=== PATIENT | male | born 1940 | race Caucasian/White ===

== ENCOUNTER → 2017-03-15 | Outpatient (CLI) | payer MEDICARE, MEDICAID ==
--- NOTE | ~2017-03-15 | CON ---
[place], [place] REPORT OF CONSULTATION NAME: KAROLINA SALDAÑA UNIT #: [id number] ROOM: DOCTOR: SIMONA IrahetaJACQUELINE BIRTHDATE: [birth year] DOS: 03/15/2017 New patient consultation for possible hyperbaric oxygen therapy. CHIEF COMPLAINT: Nonhealing wound. HISTORY OF PRESENT ILLNESS: This is a 76-year-old male with a history of rectal cancer, who was treated with preop chemotherapy and radiation treatment followup. He had APR surgery with colostomy on 09/11/2016. He developed a wound infection postoperatively that was I and D and now has a continued chronic open wound in the gluteal cleft that is nonhealing. He was referred to our [facility] for hyperbaric oxygen therapy for soft tissue radionecrosis by Plastic Surgery, Dr. Conner. He did receive radiation treatment, looks like 03/31/2017. The site was a pelvic region. The total dose was 5040 cGy. The wound is located on the gluteal cleft with chronic drainage, healing failure, signs of infection according to the medical notes. He was referred to Dr. Conner by Dr. Chon Parks at [facility] for further evaluation and then has been referred to us for possible hyperbaric oxygen therapy. The conventional therapy that has been attempted looks like I and D, treatment of infection, evaluation by Infectious Disease, management of MRSA infection. It looks like he had a wound VAC and silver dressing with no relief and continues to have an open wound draining copious amounts of fluid according to the notes. He is also currently on Dakin solution twice a day with decontamination of MRSA with chlorhexidine, showers, and mupirocin eradication was recommended. The wound management going is not going to be done by our clinic, but it is going to be continued by his wound care physician. He has never been tried for hyperbaric oxygen. He did complete 5-Fluorouracil infusions on 04/23/2016, 04/16/2016, 04/09/2016, and 04/02/2016. PAST MEDICAL HISTORY: Includes the following: History of COPD, unspecified history of hypertension. He has had a history of falls, history of gout in the right hand. He has a history of MRSA, history of chronic ulceration of the left leg. He has had a total knee arthroplasty, general osteoarthritis, history of atrial fibrillation, chronic nonhealing wound, anemia, colostomy, history of edema, epistaxis, GERD, hyperlipidemia, long-term use of anti-thrombotics or anti-platelets, history of rectal cancer as stated above, history of nausea, history of coronary artery disease, status post implant and graft. He is status post right total knee. He has had a history of shortness of breath, history of hearing loss in the left ear, and history of peripheral venous insufficiency. There is a history of congestive heart failure also on the medical records. History of dialysis, it sounds like it was short term. He is not on dialysis at this point. FAMILY HISTORY: Noncontributory. SOCIAL HISTORY: He is a former smoker. He quit 25 years ago. He is a former smoker. He quit 25 years ago. He never drinks alcohol. He currently lives in a shelter. There is no drug use. MEDICATIONS: As follows: He looks like his active medicines are acetaminophen [place], [place] REPORT OF CONSULTATION NAME: KAROILNA SALDAÑA UNIT #: [id number] ROOM: DOCTOR: SIMONA Iraheta,DYER BIRTHDATE: [birth year] 325 mg by mouth 3 times a day for pain, albuterol nebulizers every 6 hours as needed as well as nebulizers 3 times a day for shortness of breath, aloe skin protectant to his feet every day, aspirin 81 daily, Bactrim double strength 1 tablet p.o. b.i.d. that was started on 03/10/2017 for 7 days. He is on bisacodyl tablets by mouth once a day for constipation, calcium carbonate 500/200 mg units 2 tablets once a day. He is on Dakin's solution to his wound. He is on Ferrex 150 mg 1 tablet daily, folic acid 1 mg p.o. daily, Lasix 40 mg p.o. 2 times a day for edema. It is not clear to me if this is p.r.n. and/or regularly scheduled. He is on metoprolol 25 mg half tablet 2 times a day for high blood pressure, Nexium 40 mg p.o. 2 times a day for GERD. He also has a p.r.n. sublingual nitroglycerin; however, he says he has not ever used it. Plavix 75 mg daily. He is on nasal saline spray, Symbicort 2 puffs 2 times a day, Zofran p.r.n., and Zyloprim is 100 mg p.o. daily. REVIEW OF SYSTEMS: The patient denies any fevers or chills, abdominal pains, or diarrhea. He says his appetite is good. He did admit to losing some weight when he first had a surgery. He says his breathing is good. He does not get short of breath, but does take his inhalers. He denies any chest pains. He says he has not had to ever use nitroglycerin that he is aware of. He does recall that his legs swell at times, and he does recall being on dialysis, but he is not sure how long it was or how and why that was. He is currently not on dialysis. He reports no history of seizures, and he reports no history of acute congestive heart failure that he is aware of. OBJECTIVE: VITAL SIGNS: Stable. Temperature is 98.5, pulse is 64, respirations 18, blood pressure is 112/72. GENERAL: This is an elderly male who appears to be in no acute distress, pleasant and cooperative, appears to be chronically ill. HEENT: Extraocular movements are intact. Pupils are reactive. Oropharynx is clear. LUNGS: Clear to auscultation. CARDIOVASCULAR: S1, S2, regular rate and rhythm. ABDOMEN: Soft. It is not tender. He has a colostomy in place. EXTREMITIES: He has 1+ pitting edema bilaterally with evidence of venous stasis disease. There is no calf tenderness. NEUROLOGIC: He appears to be alert and oriented and nonfocal. ASSESSMENT AND PLAN: Chronic nonhealing wound, felt to be secondary to radionecrosis. The patient is going to have his wound care done by his regular wound care physician, and he has been referred for hyperbaric oxygen. I think he would be a good candidate for hyperbaric oxygen. Unfortunately, the ride is quite a bit for him. It is 2-hour ride to get here, but he states he will come every day once he starts. I did explain risks with hyperbarics including congestive heart failure and pneumothorax, barotrauma to the ears and seizures. The patient is aware and is still wanting to proceed. With his history of renal failure and it did state in one of the charts that he has a history of heart failure, he is on diuretics. I would definitely like to get an echocardiogram for him to see what his ejection fraction is first, see if we can obtain some of the records from his discharge summary from when he last was admitted to the [place], [place] REPORT OF CONSULTATION NAME: KAROLINA SALDAÑA UNIT #: [id number] ROOM: DOCTOR: JACQUELINE JARVIS M.D. BIRTHDATE: [birth year] hospital, and he will need a chest x-ray and EKG as well. Once we have those reports, we will see if we can clear him for hyperbarics. JACQUELINE JARVIS MD CM:CONSTR:REPORT OF CONSULTATION 1636 03/15/17 1822 interface
--- NOTE | ~2017-03-15 | WRIGHTHP ---
[place], [place] PATIENT HISTORY AND PHYSICAL EXAM NAME: KAROLINA SALDAÑA UNIT #: [id number] ROOM: DOCTOR: JACQUELINE JARVIS M.D. BIRTHDATE: [birth year] DOS: 03/15/2017 ADDENDUM I also examined his tympanic membranes and he did have some cerumen impaction, the left being worse than the right, the left where he has hearing loss. It was pretty dry and thick. So, I have recommended to him to use Debrox ear wax and to use it 5-10 drops in each ear twice a day for 5 days and then to flush it out per the instructions listed on the kit that is available, so hopefully we can better visualize his tympanic membranes when he comes back. JACQUELINE JARVIS MD CM:HISPHYS:PATIENT HISTORY AND PHYSICAL EXAMINATION 1649 JACQUELINE JARVIS M.D. 03/16/17 1138 MAGGY [email or web address].TM
--- NOTE | ~2017-03-15 | CON ---
[place], [place] REPORT OF CONSULTATION NAME: KAROLINA SALDAÑA UNIT #: [id number] ROOM: DOCTOR: JACQUELINE JARVIS M.D. BIRTHDATE: [birth year] DOS: 03/15/2017 ADDENDUM I also examined his tympanic membranes and he did have some cerumen impaction, the left being worse than the right, the left where he has hearing loss. It was pretty dry and thick. So, I have recommended to him to use Debrox ear wax and to use it 5-10 drops in each ear twice a day for 5 days and then to flush it out per the instructions listed on the kit that is available, so hopefully we can better visualize his tympanic membranes when he comes back. JACQUELINE JARVIS MD CM:CONSTR:REPORT OF CONSULTATION 1637 03/16/17 1136 interface
== END ==
LOC: WOUNDCARE 12:30
DX: T66.XXXA Radiation sickness, unspecified, initial encounter (principal); J44.9 Chronic obstructive pulmonary disease, unspecified; I10 Essential (primary) hypertension; I48.91 Unspecified atrial fibrillation; M15.9 Polyosteoarthritis, unspecified; K21.9 Gastro-esophageal reflux disease without esophagitis; E78.5 Hyperlipidemia, unspecified; I25.10 Atherosclerotic heart disease of native coronary artery without angina pectoris; I50.9 Heart failure, unspecified; I87.2 Venous insufficiency (chronic) (peripheral); Z87.891 Personal history of nicotine dependence; Z85.048 Personal history of other malignant neoplasm of rectum, rectosigmoid junction, and anus; Z86.14 Personal history of Methicillin resistant Staphylococcus aureus infection; Y84.2 Radiological procedure and radiotherapy as the cause of abnormal reaction of the patient, or of later complication, without mention of misadventure at the time of the procedure

== ENCOUNTER → 2017-04-05 | Outpatient (CLI) | payer MEDICARE, MEDICAID | LOC: WOUNDCARE 02:11 | DX: L59.8 Other specified disorders of the skin and subcutaneous tissue related to radiation (principal); L98.412 Non-pressure chronic ulcer of buttock with fat layer exposed; Y84.2 Radiological procedure and radiotherapy as the cause of abnormal reaction of the patient, or of later complication, without mention of misadventure at the time of the procedure ==

== ENCOUNTER → 2017-04-06 | Outpatient (CLI) | payer MEDICARE, MEDICAID | LOC: WOUNDCARE 03:07 | DX: L59.8 Other specified disorders of the skin and subcutaneous tissue related to radiation (principal); L98.412 Non-pressure chronic ulcer of buttock with fat layer exposed; Y84.2 Radiological procedure and radiotherapy as the cause of abnormal reaction of the patient, or of later complication, without mention of misadventure at the time of the procedure ==

== ENCOUNTER → 2017-04-07 | Outpatient (CLI) | payer MEDICARE, MEDICAID | LOC: WOUNDCARE 02:47 | DX: L59.8 Other specified disorders of the skin and subcutaneous tissue related to radiation (principal); L97.412 Non-pressure chronic ulcer of right heel and midfoot with fat layer exposed; Y84.2 Radiological procedure and radiotherapy as the cause of abnormal reaction of the patient, or of later complication, without mention of misadventure at the time of the procedure ==

== ENCOUNTER → 2017-04-08 | Outpatient (CLI) | payer MEDICARE, MEDICAID | LOC: WOUNDCARE 02:29 | DX: L59.8 Other specified disorders of the skin and subcutaneous tissue related to radiation (principal); L98.412 Non-pressure chronic ulcer of buttock with fat layer exposed; Y84.2 Radiological procedure and radiotherapy as the cause of abnormal reaction of the patient, or of later complication, without mention of misadventure at the time of the procedure ==

== ENCOUNTER → 2017-04-12 | Outpatient (CLI) | payer MEDICARE, MEDICAID | LOC: WOUNDCARE 03:36 | DX: L59.8 Other specified disorders of the skin and subcutaneous tissue related to radiation (principal); L98.412 Non-pressure chronic ulcer of buttock with fat layer exposed; Y84.2 Radiological procedure and radiotherapy as the cause of abnormal reaction of the patient, or of later complication, without mention of misadventure at the time of the procedure ==

== ENCOUNTER → 2017-04-13 | Outpatient (CLI) | payer MEDICARE, MEDICAID | LOC: WOUNDCARE 08:56 | DX: L59.8 Other specified disorders of the skin and subcutaneous tissue related to radiation (principal); L98.412 Non-pressure chronic ulcer of buttock with fat layer exposed; Y84.2 Radiological procedure and radiotherapy as the cause of abnormal reaction of the patient, or of later complication, without mention of misadventure at the time of the procedure ==

== ENCOUNTER → 2017-04-14 | Outpatient (CLI) | payer MEDICARE, MEDICAID | LOC: WOUNDCARE 03:10 | DX: L59.8 Other specified disorders of the skin and subcutaneous tissue related to radiation (principal); L98.412 Non-pressure chronic ulcer of buttock with fat layer exposed; Y84.2 Radiological procedure and radiotherapy as the cause of abnormal reaction of the patient, or of later complication, without mention of misadventure at the time of the procedure ==

== ENCOUNTER → 2017-04-21 | Outpatient (CLI) | payer MEDICARE, MEDICAID ==
--- NOTE | ~2017-04-21 | PR ---
[place], [place] PROGRESS NOTE NAME: KAROLINA SALDAÑA UNIT #: [id number] ROOM: DOCTOR: GOSIA GONCALVES DO BIRTHDATE: [birth year] DOS: 04/21/2017 HYPERBARIC PROCEDURE NOTE SUPERVISING PHYSICIAN: Dr. Goncalves. SUBJECTIVE: The patient is scheduled for HBO treatment. The protocol is used for 9-minute treatment at 2.5 WILMAN on 100% oxygen with both 15-minute compression and decompression time interval with two 5-minute air breaks. Total treatment time 130 minutes. This is treatment #8. OBJECTIVE: VITAL SIGNS: Both pre and post-vital signs were taken, reviewed and appeared stable. Exam completed pre and post-treatment. EARS: Canals are clear. No evidence of blockage, edema, ear infection or barotraumas. NOSE: No rhinorrhea or bleeding. HEART: Regular. LUNGS: Clear to auscultation bilaterally. ASSESSMENT: Late effect of radiation. PLAN: The patient will continue current HBO treatment scheduled and protocol used. GOSIA GONCALVES DO CM:KASSY 1413 37 GOSIA GONCALVES DO 04/21/171937 interface
== END ==
LOC: WOUNDCARE 02:38
DX: L98.412 Non-pressure chronic ulcer of buttock with fat layer exposed (principal); L59.8 Other specified disorders of the skin and subcutaneous tissue related to radiation; Y84.2 Radiological procedure and radiotherapy as the cause of abnormal reaction of the patient, or of later complication, without mention of misadventure at the time of the procedure

== ENCOUNTER → 2017-04-22 | Outpatient (CLI) | payer MEDICARE, MEDICAID ==
--- NOTE | ~2017-04-22 | PR ---
[place], [place] PROGRESS NOTE NAME: KAROLINA SALDAÑA UNIT #: [id number] ROOM: DOCTOR: KIRK LAMBERT DO BIRTHDATE: [birth year] DOS: 04/22/2017 HYPERBARIC NOTE SUBJECTIVE: The patient is supervised in a hyperbaric chamber on 04/22/2017 for night hyperbaric treatment for late effects of radiation. Pre-therapy, tympanic membranes were negative with TEED score grade 0 bilaterally. Pre-therapy, blood pressure 110/60, pulse 60, respirations 16 and temperature 97.6. Post-therapy, blood pressure 110/60, pulse 60, respirations 16 and temperature 97.8. The patient is supervised in chamber 122 minutes, 90 minutes at depth at 2 atmospheres of pressure with no air breaks. He tolerated the procedure without difficulty and will return for next treatment. KIRK LAMBERT DO CM:PNTRANS 1830 KIRK LAMBERT DO 04/23/1736 interface
== END | disposition home or self-care (01) ==
LOC: WOUNDCARE 00:15
DX: L59.8 Other specified disorders of the skin and subcutaneous tissue related to radiation (principal); L98.412 Non-pressure chronic ulcer of buttock with fat layer exposed; Y84.2 Radiological procedure and radiotherapy as the cause of abnormal reaction of the patient, or of later complication, without mention of misadventure at the time of the procedure

== ENCOUNTER → 2017-04-23 | Outpatient (CLI) | payer MEDICARE, MEDICAID ==
--- NOTE | ~2017-04-23 | PR ---
[place], [place] PROGRESS NOTE NAME: KAROLINA SALDAÑA UNIT #: [id number] ROOM: DOCTOR: KIRK LAMBERT DO BIRTHDATE: [birth year] DOS: 04/23/2017 HYPERBARIC NOTE The patient was supervised in the hyperbaric chamber on 04/23/2017 for the 10th hyperbaric treatment for late effect of radiation. Pre-therapy tympanic membranes were negative. Grade 0 TEED score bilaterally. Blood pressure 110/58, pulse 62, respirations 16, temperature 97.8. Post-therapy blood pressure 110/60, pulse 68, respirations 16, temperature 97.8. The patient is supervised in the chamber 116 minutes, 90 minutes at depth at 2 atmospheres of pressure with no air breaks. He tolerated the procedure without difficulty and will return for next treatment. KIRK LAMBERT DO CM:PNTRANS 1733 KIRK LAMBERT DO 04/23/17 2254 interface
== END ==
LOC: WOUNDCARE 03:41
DX: L98.412 Non-pressure chronic ulcer of buttock with fat layer exposed (principal); L59.8 Other specified disorders of the skin and subcutaneous tissue related to radiation; Y84.2 Radiological procedure and radiotherapy as the cause of abnormal reaction of the patient, or of later complication, without mention of misadventure at the time of the procedure

== ENCOUNTER → 2017-04-26 | Outpatient (CLI) | payer MEDICARE, MEDICAID ==
--- NOTE | ~2017-04-26 | PR ---
[place], [place] PROGRESS NOTE NAME: KAROLINA SALDAÑA UNIT #: [id number] ROOM: DOCTOR: JACQUELINE JARVIS M.D. BIRTHDATE: [birth year] DOS: 04/26/2017 This is HBO treatment #11. INDICATION: Late effect of radiation. The protocol is 2.0 WILMAN with 90 minutes of oxygen and no air breaks. Compression began at 8:12 and treatment pressure reached at 8:28. Decompression began at 9:58 and ended at 10:14. Compression rate down and decompression rate up is 1.0 psi per minute. Treatment length was 122 minutes. Vitals pre-HBO are blood pressure 112/60, pulse 62, respirations 16 and temperature 97.8. Post-HBO, blood pressure 110/60, pulse 58, respirations 16 and temperature 97.7. TEED scale is grade 0 bilaterally pre- and post-HBO treatment. The patient tolerated the treatment well without adverse events. I certify that I supervised this HBO treatment in accordance with Medicare guidelines. A trained emergency response team is readily available per hospital policies and procedures. Continue HBO therapy as ordered. JACQUELINE JARVIS MD CM:PNTRANS 1307 1326 JACQUELINE JARVIS M.D. 04/26/17 1327 interface
== END ==
LOC: WOUNDCARE 02:50
DX: L98.412 Non-pressure chronic ulcer of buttock with fat layer exposed (principal); L59.8 Other specified disorders of the skin and subcutaneous tissue related to radiation; Y84.2 Radiological procedure and radiotherapy as the cause of abnormal reaction of the patient, or of later complication, without mention of misadventure at the time of the procedure

== ENCOUNTER → 2017-04-28 | Outpatient (CLI) | payer MEDICARE, MEDICAID ==
--- NOTE | ~2017-04-28 | PR ---
[place], [place] PROGRESS NOTE NAME: KAROLINA SALDAÑA UNIT #: [id number] ROOM: DOCTOR: SIMONA Iraheta,JACQUELINE BIRTHDATE: [birth year] DOS: 04/28/2017 HBO THERAPY NOTE This is treatment #12. HBO indication is late effects of radiation. The protocol is 2.0 WILMAN with 90 minutes of oxygen and no air breaks. Compression begins at 8:07. Treatment pressure reached at 8:23. Treatment length was 122 minutes. Decompression began at 9:53 and ends at 10:08. Compression rate down and decompression rate up was 1.0 psi per minute. Vitals pre-HBO are blood pressure 110/58, pulse 68, respirations 16, temperature 97.8. Post-HBO, the blood pressure is 96/54, pulse of 64, respirations 16, temperature 97.9. TEED scale is grade 0 bilaterally pre and post-HBO treatment. The patient tolerated the treatment well without adverse events. I certify that I supervised this HBO treatment in accordance with Medicare guidelines. A trained emergency response team is readily available per hospital policies and procedures. Continue HBO therapy as ordered. JACQUELINE JARVIS MD CM:PNTRANS 1348 1404 JACQUELINE JARVIS M.D. 04/28/17 1404 interface
== END ==
LOC: WOUNDCARE 07:53
DX: L98.412 Non-pressure chronic ulcer of buttock with fat layer exposed (principal); L59.8 Other specified disorders of the skin and subcutaneous tissue related to radiation; Y84.2 Radiological procedure and radiotherapy as the cause of abnormal reaction of the patient, or of later complication, without mention of misadventure at the time of the procedure

== ENCOUNTER → 2017-04-30 | Outpatient (CLI) | payer MEDICARE, MEDICAID ==
--- NOTE | ~2017-04-30 | PR ---
[place], [place] PROGRESS NOTE NAME: KAROLINA SALDAÑA UNIT #: [id number] ROOM: DOCTOR: GOSIA GONCALVES DO BIRTHDATE: [birth year] DOS: 04/30/2017 HYPERBARIC PROCEDURE NOTE SUPERVISING PHYSICIAN: Dr. Goncalves. SUBJECTIVE: The patient is scheduled for HBO treatment. The protocol used for a 90-minute treatment at 2.0 WILMAN and 100% oxygen with both a 60-minute compression and decompression time interval. Total treatment length 122 minutes, treatment #13. OBJECTIVE: VITAL SIGNS: Both pre and post-treatment vital signs were taken, reviewed and appeared stable. Exam completed pre and post-treatment. EARS: Canals are clear. No evidence of blockage, edema, ear infection or barotraumas. NOSE: No rhinorrhea or bleeding. HEART: Regular. LUNGS: Clear to auscultation bilaterally. ASSESSMENT: Late effect of radiation. PLAN: The patient will continue current HBO treatment scheduled and protocol used. GOSIA GONCALVES DO CM:KASSY 1152 1249 GOSIA GONCALVES DO 05/04/17 1249 interface
== END | disposition home or self-care (01) ==
LOC: WOUNDCARE 08:11
DX: L98.412 Non-pressure chronic ulcer of buttock with fat layer exposed (principal); L59.8 Other specified disorders of the skin and subcutaneous tissue related to radiation; Y84.2 Radiological procedure and radiotherapy as the cause of abnormal reaction of the patient, or of later complication, without mention of misadventure at the time of the procedure

== ENCOUNTER → 2017-05-03 | Outpatient (CLI) | payer MEDICARE, MEDICAID ==
--- NOTE | ~2017-05-03 | PR ---
[place], [place] PROGRESS NOTE NAME: KAROLINA SALDAÑA UNIT #: [id number] ROOM: DOCTOR: SIMONA Iraheta,JACQUELINE BIRTHDATE: [birth year] DOS: 05/03/2017 HBO THERAPY NOTE This is treatment #14. The indication is late effects of radiation. Protocol is 2.0 WILMAN with 90 minutes of oxygen and no air breaks. Compression began at 8:08. Treatment pressure reached at 8:24. Treatment length was 122 minutes. Decompression began at 9:54 and ended at 10:10. Compression rate down and decompression rate up was 1.0 psi per minute. Vital signs pre-HBO are blood pressure 110/62, pulse 68, respirations 16, temperature 97.6. Post-HBO, the blood pressure is 100/60, pulse 64, respirations 16, temperature 97.7. TEED scale is grade 0 bilaterally pre and post-HBO treatment. The patient tolerated the treatment well without adverse events. I certify that I supervised this HBO treatment in accordance with Medicare guidelines. A trained emergency response team is readily available per hospital policies and procedures. Continue HBO therapy as ordered. JACQUELINE JARVIS MD CM:PNTRANS 1547 1622 JACQUELINE JARVIS M.D. 05/03/17 1622 interface
== END | disposition home or self-care (01) ==
LOC: WOUNDCARE 03:12
DX: L98.412 Non-pressure chronic ulcer of buttock with fat layer exposed (principal); L59.8 Other specified disorders of the skin and subcutaneous tissue related to radiation; Y84.2 Radiological procedure and radiotherapy as the cause of abnormal reaction of the patient, or of later complication, without mention of misadventure at the time of the procedure

== ENCOUNTER → 2017-05-04 | Outpatient (CLI) | payer MEDICARE, MEDICAID ==
--- NOTE | ~2017-05-04 | PR ---
[place], [place] PROGRESS NOTE NAME: KAROLINA SALDAÑA UNIT #: [id number] ROOM: DOCTOR: SIMONA Iraheta,JACQUELINE BIRTHDATE: [birth year] DOS: 05/04/2017 HBO THERAPY NOTE INDICATION: Late effects of radiation. Treatment #15. Protocol is 2.0 WILMAN with 90 minutes of oxygen and no air breaks. Compression began at 08:06. Treatment pressure reached at 8:21. Treatment length was 120 minutes. Decompression began at 9:51 and ended at 10:06. Compression rate down and decompression rate up was 1.0 psi per minute. Vitals pre-HBO are blood pressure 98/60, pulse is 68, respirations 18, temperature 97.6. Post-HBO, the blood pressure is 100/60, pulse of 66, respirations 16, temperature 97.7. TEED scale is grade 0 bilaterally pre and post-HBO treatment. The patient tolerated the treatment well without adverse events. I certify that I supervised this HBO treatment in accordance with Medicare guidelines. A trained emergency response team is really available per hospital policies and procedures. Continue HBO therapy as ordered. JACQUELINE JARVIS MD CM:PNTRANS 1441 1503 JACQUELINE JARVIS M.D. 05/04/17 1503 interface
== END | disposition home or self-care (01) ==
LOC: WOUNDCARE 03:19
DX: L98.412 Non-pressure chronic ulcer of buttock with fat layer exposed (principal); L59.8 Other specified disorders of the skin and subcutaneous tissue related to radiation; Y84.2 Radiological procedure and radiotherapy as the cause of abnormal reaction of the patient, or of later complication, without mention of misadventure at the time of the procedure

== ENCOUNTER → 2017-05-05 | Outpatient (CLI) | payer MEDICARE, MEDICAID ==
--- NOTE | ~2017-05-05 | PR ---
[place], [place] PROGRESS NOTE NAME: KAROLINA SALDAÑA UNIT #: [id number] ROOM: DOCTOR: SIMONA Iraheta,JACQUELINE BIRTHDATE: [birth year] DOS: 05/05/2017 HBO THERAPY NOTE Treatment #16. INDICATION: Late effects of radiation. The protocol is 2.0 WILMAN with 90 minutes of oxygen and no air breaks. Compression began at 8:10. Treatment pressure reached at 8:25. Decompression began at 9:55 and ended at 10:10. Treatment length was 120 minutes. Vitals pre-HBO are blood pressure of 96/60, pulse 66, respirations 16, temperature 97.8. Post-HBO, the blood pressure is 106/60, pulse 64, respirations 16, temperature 97.6. TEED scale is grade 0 bilaterally pre and post-HBO treatment. The patient tolerated the treatment well without adverse events. I certify that I supervised this HBO treatment in accordance with Medicare guidelines. A trained emergency response team is readily available per hospital policies and procedures. Continue HBO therapy as ordered. JACQUELINE JARVIS MD CM:PNTRANS 1453 1525 JACQUELINE JARVIS M.D. 05/05/17 1525 interface
== END ==
LOC: WOUNDCARE 02:57
DX: L98.412 Non-pressure chronic ulcer of buttock with fat layer exposed (principal); L59.8 Other specified disorders of the skin and subcutaneous tissue related to radiation; Y84.2 Radiological procedure and radiotherapy as the cause of abnormal reaction of the patient, or of later complication, without mention of misadventure at the time of the procedure

== ENCOUNTER → 2017-05-06 | Outpatient (CLI) | payer MEDICARE, MEDICAID ==
--- NOTE | ~2017-05-06 | PR ---
[place], [place] PROGRESS NOTE NAME: KAROLINA SALDAÑA UNIT #: [id number] ROOM: DOCTOR: SIMONA Iraheta,JACQUELINE BIRTHDATE: [birth year] DOS: 05/06/2017 HBO THERAPY NOTE This is treatment #17. TREATMENT PROTOCOL: 2.0 WILMAN with 90 minutes of oxygen and no air breaks. Indication is late effects of radiation. Compression began at 8:11. Treatment pressure reached at 8:27. Treatment length was 122 minutes. Decompression began at 9:57 and ended at 10:13. Vitals pre-HBO, blood pressure 100/60, pulse 60, respirations 16, and temperature 97.5. Post-HBO, blood pressure 100/60, pulse 60, respirations 16, and temperature 97.6. TEED scale was grade 0 bilaterally pre and post-HBO treatment. The patient tolerated the treatment well without adverse events. I certify that I supervised this HBO treatment in accordance with Medicare guidelines. A trained emergency response team is readily available per hospital policies and procedures. Continue HBO therapy as ordered. JACQUELINE JARVIS MD CM:PNTRANS 1209 1255 JACQUELINE JARVIS M.D. 05/06/17 1255 interface
== END ==
LOC: WOUNDCARE 00:51
DX: L98.412 Non-pressure chronic ulcer of buttock with fat layer exposed (principal); L59.8 Other specified disorders of the skin and subcutaneous tissue related to radiation; Y84.2 Radiological procedure and radiotherapy as the cause of abnormal reaction of the patient, or of later complication, without mention of misadventure at the time of the procedure

== ENCOUNTER → 2017-05-10 | Outpatient (CLI) | payer MEDICARE, MEDICAID ==
--- NOTE | ~2017-05-10 | PR ---
[place], [place] PROGRESS NOTE NAME: KAROLINA SALDAÑA UNIT #: [id number] ROOM: DOCTOR: SIMONA Iraheta,JACQUELINE BIRTHDATE: [birth year] DOS: 05/10/2017 HBO THERAPY NOTE This is HBO treatment #18. He has got 20 ordered at the present time. INDICATION: Late effects of radiation. The protocol is 2.0 WILMAN with 90 minutes of oxygen and no air breaks. Compression began at 8:10. Treatment pressure reached at 8:25. Treatment length was 120 minutes. Decompression began at 9:55 and ended at 10:10. Compression rate down and decompression rate up was 1.0 psi per minute. Vital signs pre-HBO are blood pressure 90/60, pulse 60, respirations 16, temperature 97.6. Post-HBO, the blood pressure is 110/64, pulse is 64, respirations 16, temperature 97.5. TEED scale is grade 0 bilaterally pre and post-HBO treatment. The patient tolerated the treatment well without adverse events. I certify that I supervised this HBO treatment in accordance with Medicare guidelines. A trained emergency response team is readily available per hospital policies and procedures. Continue HBO therapy as ordered. JACQUELINE JARVIS MD CM:PNTRANS 1334 1350 JACQUELINE JARVIS M.D. 05/10/17 1350 interface
== END | disposition home or self-care (01) ==
LOC: WOUNDCARE 01:18
DX: L98.412 Non-pressure chronic ulcer of buttock with fat layer exposed (principal); L59.8 Other specified disorders of the skin and subcutaneous tissue related to radiation; Y84.2 Radiological procedure and radiotherapy as the cause of abnormal reaction of the patient, or of later complication, without mention of misadventure at the time of the procedure

== ENCOUNTER → 2017-05-11 | Outpatient (CLI) | payer MEDICARE, MEDICAID ==
--- NOTE | ~2017-05-11 | PR ---
[place], [place] PROGRESS NOTE NAME: KAROLINA SALDAÑA UNIT #: [id number] ROOM: DOCTOR: SIMONA Iraheta,JACQUELINE BIRTHDATE: [birth year] DOS: 05/11/2017 HBO THERAPY NOTE This is treatment #19. The protocol is 2.0 WILMAN with 90 minutes of oxygen and no air breaks. INDICATION: Late effects of radiation. Compression begins at 8:09. Treatment pressure reached at 8:25. Treatment length 122 minutes. Decompression begins at 9:55 and ends at 10:11. Vitals pre-HBO are blood pressure of 100/60, pulse of 60, respirations 16, temperature 97.6. Post-HBO, the blood pressure is 110/64, pulse of 60, respirations 16, temperature 97.7. TEED scale is grade 0 bilaterally pre and post-HBO treatment. The patient tolerated the treatment well without adverse events. I certify that I supervised this HBO treatment in accordance with Medicare guidelines. A trained emergency response team is readily available per hospital policies and procedures. Continue HBO therapy as ordered. JACQUELINE JARVIS MD CM:KASSY 1258 1259 JACQUELINE JARVIS M.D. 05/12/17 1259 interface
== END | disposition home or self-care (01) ==
LOC: WOUNDCARE 04:49
DX: L98.412 Non-pressure chronic ulcer of buttock with fat layer exposed (principal); L59.8 Other specified disorders of the skin and subcutaneous tissue related to radiation; Y84.2 Radiological procedure and radiotherapy as the cause of abnormal reaction of the patient, or of later complication, without mention of misadventure at the time of the procedure

== ENCOUNTER → 2017-05-12 | Outpatient (CLI) | payer MEDICARE, MEDICAID ==
--- NOTE | ~2017-05-12 | PR ---
[place], [place] PROGRESS NOTE NAME: KAROLINA SALDAÑA UNIT #: [id number] ROOM: DOCTOR: SIMONA Iraheta,JACQUELINE BIRTHDATE: [birth year] DOS: 05/12/2017 HBO THERAPY NOTE This is treatment #20. INDICATION: Late effects of radiation. The protocol is 2.0 WILMAN with 90 minutes of oxygen and no air breaks. Compression began at 8:09. Treatment pressure reached at 8:25. Treatment length was 122 minutes. Decompression began at 9:55 and ended at 10:11. Compression rate down and decompression rate up was 1.0 psi per minute. Vitals pre-HBO, blood pressure 100/62, pulse 62, respirations 16, temperature 97.6. Post-HBO, the blood pressure was 100/60, pulse of 60, respirations 16, temperature 97.6. TEED scale is grade 0 bilaterally pre and post-HBO treatment. The patient tolerated the treatment well without adverse events. I certify that I supervised this HBO treatment in accordance with Medicare guidelines. A trained emergency response team is readily available per hospital policies and procedures. Continue HBO therapy as ordered. JACQUELINE JARVIS MD CM:PNTRANS 1356 18 JACQUELINE JARVIS M.D. 05/12/17 2219 interface
== END ==
LOC: WOUNDCARE 03:10
DX: L98.412 Non-pressure chronic ulcer of buttock with fat layer exposed (principal); L59.8 Other specified disorders of the skin and subcutaneous tissue related to radiation; Y84.2 Radiological procedure and radiotherapy as the cause of abnormal reaction of the patient, or of later complication, without mention of misadventure at the time of the procedure